=== PATIENT | female | born 1945 | race Caucasian/White ===

== ENCOUNTER → 2017-09-11 | Outpatient (CLI) | payer MEDICARE ==
[~2017-09-11] MED LIST: ASPI-1471 PO; CIPR-214 PO; LEVO50TA80 PO; NITR-105 PO; OMEP-218 PO; PRED-1 PO; ZOL5 PO
== END ==
LOC: LAB 14:17
PROVIDERS: ATTEND Internal Medicine Nephrology
DX: I10 Essential (primary) hypertension (principal); Q60.0 Renal agenesis, unilateral; D47.2 Monoclonal gammopathy
CPT/HCPCS: 81001

== ENCOUNTER 2017-11-30 06:53 | Emergency (ER) | payer MEDICARE ==
--- NOTE | 2017-11-30 07:06 | ER Report ---
History and Physical Time Seen By MD: 07:06 Hx. of Stated Complaint: uti, took peridium an hour ago HPI/ROS CHIEF COMPLAINT: dysuria HISTORY OF PRESENT ILLNESS: Patient is a 72-year-old female who presents to the emergency department with a 1 day worth of increased urinary frequency and burning with urination. She denies any flank pain patient has been dealing with frequent urinary tract infections. She just recently returned from [place] and was diagnosed and treated for 2 separate urinary tract infections over the past 2 months. 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 Patient does have follow-up with [facility] in approximately one week. She did take Pyridium just prior to coming to the emergency department for her symptoms. REVIEW OF SYSTEMS: Respiratory: No cough, no dyspnea. Cardiovascular: No chest pain, no palpitations. Gastrointestinal: Per pubic abdominal pain no nausea vomiting or diarrhea Musculoskeletal: No back pain. Allergies: Coded Allergies: sulfamethoxazole (Verified Allergy, Intermediate, RASH, 11/30/17) trimethoprim (Verified Allergy, Intermediate, RASH, 11/30/17) cefazolin (Verified Adverse Reaction, Intermediate, RASH, 11/30/17) Home Meds Active Scripts Cephalexin (KEFLEX) 500 Mg Capsule, 500 MG PO Q6H, #28 CAP 0 Refills TAKE ONE CAPSULE BY MOUTH EVERY SIX HOURS Prov:LAURENT MARION MD 11/30/17 Reported Medications Levothyroxine Sodium (SYNTHROID) 50 Mcg Tablet, 50 MCG PO QDAY, TAB 08/30/17 Discontinued Scripts Ciprofloxacin Hcl (CIPROFLOXACIN HCL) 500 Mg Tablet, 500 MG PO Q12H, #14 TAB Prov:ABHISHEK RIOJAS PA-C 08/30/17 Past Medical/Surgical History Hypothyroidism Hx Smoking: No Hx Substance Use Disorder: No Constitutional Vital Sign - Last 24 Hours 11/30/17 06:57 Temp 98.3 Pulse 74 Resp 12 B/P (MAP) 120/77 Pulse Ox 96 O2 Delivery Room Air Physical Exam General Appearance: The patient is alert, has no immediate need for airway protection and no current signs of toxicity. Eyes: Pupils equal and round no injection. Respiratory: Chest is non tender, lungs are clear to auscultation. Cardiac: regular rate and rhythm Gastrointestinal: Abdomen is soft and non tender, no masses, bowel sounds normal. No CVA tenderness Musculoskeletal: Neck: Neck is supple and non tender. Extremities have full range of motion and are non tender. Skin: No rashes or lesions. Medical Decision Making Data Points Laboratory Hematology Test 11/30/17 06:58 Chemistry Test 11/30/17 06:58 Urinalysis Test 11/30/17 06:58 ED Course/Re-evaluation ED Course 11/30/2017 7:26:14 am plan at this time will be to treat the patient and her clear for urinary tract infection with cephalexin. Course will be proximally 7 days. We will send urinalysis for culture and sensitivity. I explained to the patient that if the organism is resistant to her current antibiotic we will give her a call and switch her to a more effective antibiotic. Decision to Disposition Date: Nov 30, 2017 Decision to Disposition Time: 07:26 Depart Departure Latest Vital Signs Vital Signs Date Time Temp Pulse Resp B/P (MAP) Pulse Ox O2 Delivery O2 Flow Rate FiO2 11/30/17 06:57 98.3 74 12 120/77 96 Room Air Impression: Primary Impression: Urinary tract infection Condition: Improved Disposition: HOME OR SELF-CARE Referrals: JUDY VARNER MD (PCP) 1 Week if symptoms persist SHAQUILLE GROVE MD 1 Week if symptoms persist New Scripts Cephalexin (KEFLEX) 500 Mg Capsule 500 MG PO Q6H, #28 CAP 0 Refills TAKE ONE CAPSULE BY MOUTH EVERY SIX HOURS Prov: LAURENT MARION MD 11/30/17 Patient Instructions: Urinary Tract Infection in Women (ED) Additional Instructions: Scheduled follow-up with a urologist, you were given contact information for Dr. Grove, if your symptoms persist greater than one week. Problem Qualifiers Primary Impression: Urinary tract infection Urinary tract infection type: acute cystitis Hematuria presence: without hematuria Qualified Codes: N30.00 - Acute cystitis without hematuria LAURENT MARION MD Nov 30, 2017 07:06
[2017-11-30] MEDS ORDERED: CEPHALEXIN MONO 500 MG CAP PO ONE (07:20)
[2017-11-30] MEDS ORDERED: CEPH-13 PO (07:23)
[2017-11-30 07:31] VITALS: BP 106/73
== END 2017-11-30 07:30 | disposition home or self-care (01) ==
LOC: ER 07:06
DX: N30.00 Acute cystitis without hematuria (principal)
CPT/HCPCS: 81001; 87077; 87088; 87186; 99282; A9270

== ENCOUNTER 2017-12-10 07:42 | Emergency (ER) | payer MEDICARE ==
[~2017-12-10 07:42] MED LIST changes: +CEPH-13 PO
--- NOTE | 2017-12-10 07:44 | ER Report ---
History and Physical Time Seen By MD: 07:43 HPI/ROS CHIEF COMPLAINT: Dysuria HISTORY OF PRESENT ILLNESS: 72-year-old female presents with dysuria since June has had recurrent UTIs and last treated November 30 with Keflex for UTI seen here. She is unsure of the cause of her recurrent UTIs. She has not sexy active currently. She does usual hygiene. She's had 1 vaginal . She's had a hysterectomy. She is planning on seeing a urologist in [place] at the end of January. She feels like her urethra is always irritated and feels like there may be an infection in the urethra. She had chlamydia and gonorrhea tested recently and does not want them retested today as they were negative and she is not currently active. She endorses dysuria as well as hesitancy feeling like difficult to void when she has to go. She reports she has 1 kidney on the left side. 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 REVIEW OF SYSTEMS: Respiratory: No cough, no dyspnea. Cardiovascular: No chest pain, no palpitations. Gastrointestinal: No vomiting, no abdominal pain. Musculoskeletal: No back pain. Allergies: Coded Allergies: sulfamethoxazole (Verified Allergy, Intermediate, RASH, 12/10/17) trimethoprim (Verified Allergy, Intermediate, RASH, 12/10/17) Home Meds Reported Medications Levothyroxine Sodium (SYNTHROID) 50 Mcg Tablet, 50 MCG PO QDAY, TAB 08/30/17 Discontinued Scripts Cephalexin (KEFLEX) 500 Mg Capsule, 500 MG PO Q6H, #28 CAP 0 Refills TAKE ONE CAPSULE BY MOUTH EVERY SIX HOURS Prov:LAURENT MARION MD 11/30/17 Hx Smoking: No Hx Substance Use Disorder: No Constitutional Vital Sign - Last 24 Hours 12/10/17 12/10/17 12/10/17 12/10/17 07:52 07:54 07:57 08:00 Temp 98.2 Pulse 89 83 Resp 16 B/P (MAP) 129/99 (109) 129/99 117/84 (95) Pulse Ox 94 95 O2 Delivery Room Air 12/10/17 12/10/17 12/10/17 12/10/17 08:12 08:27 08:30 08:42 Pulse 82 76 B/P (MAP) 113/88 (96) Pulse Ox 93 92 88 Physical Exam General Appearance: The patient is alert, has no immediate need for airway protection and no signs of toxicity. No acute distress Eyes: Pupils equal and round no pallor or injection. ENT, Mouth: Mucous membranes are moist. Respiratory: There are no retractions, lungs are clear to auscultation. Cardiovascular: Regular rate and rhythm. [ ] Gastrointestinal: Abdomen is soft and non tender, no masses, bowel sounds normal. Back: No CVA tenderness. : A health education teacher was present for the exam: tax technician Rachele Davila. Swabs for ANUJ and wet prep were obtained about the urethra. A speculum exam was performed and normal for age. External exam shows small amount of skin breakdown at the inferior aspect of the introitus without any bleeding. Neurological: Normal Skin: Warm and dry, no rashes. Musculoskeletal: Neck is supple non tender. Extremities are nontender, nonswollen and have full range of motion. No edema DIFFERENTIAL DIAGNOSIS: After history and physical exam differential diagnosis was considered for a bacterial vaginosis urethral, recurrent urinary tract infection. No signs of systemic or kidney infection. Medical Decision Making Data Points Laboratory Hematology Test 12/10/17 07:50 Urine Color Yellow Urine Clarity Turbid Urine pH 6.0 pH (4.8-9.5) Urine Specific [place] 1.016 Urine Protein 100 mg/dL (NEGATIVE) Urine Glucose (UA) Negative mg/dL (NEGATIVE) Urine Ketones Negative mg/dL (NEGATIVE) Urine Blood Large (NEGATIVE) Urine Nitrite Negative (NEGATIVE) Urine Bilirubin Negative (NEGATIVE) Urine Urobilinogen Negative mg/dL (0.2-1.9) Urine Leukocyte Esterase Moderate (NEGATIVE) Urine RBC 4665 /HPF (0-2/HPF) Urine WBC 9692 /HPF (0-5/HPF) Urine WBC Clumps Many /HPF Urine Squamous Epithelial Cells Many /LPF (</=FEW) Urine Transitional Epithelial Cells Many /LPF (NONE-FEW) Urine Bacteria Moderate /HPF (NONE-FEW) Urine Mucus Few /HPF (NONE-FEW) Chemistry Test 12/10/17 07:50 Urine Color Yellow Urine Clarity Turbid Urine pH 6.0 pH (4.8-9.5) Urine Specific [place] 1.016 Urine Protein 100 mg/dL (NEGATIVE) Urine Glucose (UA) Negative mg/dL (NEGATIVE) Urine Ketones Negative mg/dL (NEGATIVE) Urine Blood Large (NEGATIVE) Urine Nitrite Negative (NEGATIVE) Urine Bilirubin Negative (NEGATIVE) Urine Urobilinogen Negative mg/dL (0.2-1.9) Urine Leukocyte Esterase Moderate (NEGATIVE) Urine RBC 4665 /HPF (0-2/HPF) Urine WBC 9692 /HPF (0-5/HPF) Urine WBC Clumps Many /HPF Urine Squamous Epithelial Cells Many /LPF (</=FEW) Urine Transitional Epithelial Cells Many /LPF (NONE-FEW) Urine Bacteria Moderate /HPF (NONE-FEW) Urine Mucus Few /HPF (NONE-FEW) Urinalysis Test 12/10/17 07:50 Urine Color Yellow Urine Clarity Turbid Urine pH 6.0 pH (4.8-9.5) Urine Specific [place] 1.016 Urine Protein 100 mg/dL (NEGATIVE) Urine Glucose (UA) Negative mg/dL (NEGATIVE) Urine Ketones Negative mg/dL (NEGATIVE) Urine Blood Large (NEGATIVE) Urine Nitrite Negative (NEGATIVE) Urine Bilirubin Negative (NEGATIVE) Urine Urobilinogen Negative mg/dL (0.2-1.9) Urine Leukocyte Esterase Moderate (NEGATIVE) Urine RBC 4665 /HPF (0-2/HPF) Urine WBC 9692 /HPF (0-5/HPF) Urine WBC Clumps Many /HPF Urine Squamous Epithelial Cells Many /LPF (</=FEW) Urine Transitional Epithelial Cells Many /LPF (NONE-FEW) Urine Bacteria Moderate /HPF (NONE-FEW) Urine Mucus Few /HPF (NONE-FEW) Microbiology Microbiology Date/Time Source Procedure Growth Status 12/10/17 08:56 Pelvic ANUJ Preparation - Final Complete 12/10/17 08:56 Vaginal Wet Prep - Final Complete ED Course/Re-evaluation ED Course Plan of care discussed. Agreed upon. Orders placed. Results were returned and results were discussed with the patient. She is still symptomatic for a UTI will treat with Cipro. No signs of severe systemic infection. Possibility of urinary colonization discussed. She plans to follow-up with her urologist. Decision to Disposition Date: Dec 10, 2017 Decision to Disposition Time: 09:52 Depart Departure Latest Vital Signs Vital Signs Date Time Temp Pulse Resp B/P (MAP) Pulse Ox O2 Delivery O2 Flow Rate FiO2 12/10/17 08:42 76 88 12/10/17 08:30 113/88 (96) 12/10/17 07:54 98.2 16 Room Air Impression: Primary Impression: Symptomatic urinary tract infection Condition: Improved Disposition: HOME OR SELF-CARE Referrals: JUDY VARNER MD (PCP) New Scripts Ciprofloxacin Hcl (CIPROFLOXACIN HCL) 500 Mg Tablet 500 MG PO Q12H for 3 Days, #6 TAB Prov: KWADWO CHENG MD 12/10/17 Patient Instructions: Urinary Tract Infection in Women (ED) KWADWO CHENG MD Dec 10, 2017 07:44
[2017-12-10] MEDS ORDERED: CIPR-214 PO (09:53)
[2017-12-10 10:00] VITALS: BP 96/73
== END 2017-12-10 10:10 | disposition home or self-care (01) ==
LOC: ER 07:53
DX: N39.0 Urinary tract infection, site not specified (principal)
CPT/HCPCS: 81001; 87088; 87210; 99283; Q0112; 87077; 87186

== ENCOUNTER → 2018-01-27 | Outpatient (CLI) | payer MEDICARE ==
[~2018-01-27] MED LIST changes: +ASPI81TA94 PO; +DOCU50LI29 PO; +LEVO75TA68 PO; +OXYC-373 PO
[2018-01-27 14:16] LABS: PLATELET COUNT, AUTOMATED 382 K/uL (150-450)
== END ==
LOC: SPU 11:00
PROVIDERS: ATTEND Internal Medicine
DX: T81.4XXA Infection following a procedure, initial encounter (principal)
CPT/HCPCS: 36592; 82040; 82247; 82310; 82374; 82435; 82550; 82565; 82947; 84075; 84132; 84155; 84295; 84450; 84460; 84520; 85025; 86140; 87324; 87449

== ENCOUNTER 2018-02-21 10:00 | Outpatient (RCR) | payer MEDICARE ==
[2018-01-18 13:01] VITALS: BP 165/89
[2018-01-18] MEDS: NS(*) 0.9% 100 ML BAG 100 ML IVPB PRN (13:07)
[2018-01-18] MEDS: cefTRIAXone(*) 2 GM VIAL 2 GM in NS(*) 0.9% 100 ML ADDVANT BAG 100 ML IVPB PRN (13:10)
[2018-01-18] MEDS: NS 0.9% IVPB PRN (13:56)
[2018-01-18] MEDS: DAPTOMYCIN IVPB PRN (13:56)
[2018-01-18 14:35] VITALS: BP 152/87
[2018-01-19] MEDS: NS(*) 0.9% 100 ML BAG 100 ML IVPB PRN (11:48)
[2018-01-19] MEDS: cefTRIAXone(*) 2 GM VIAL 2 GM in NS(*) 0.9% 100 ML ADDVANT BAG 100 ML IVPB PRN (12:04)
[2018-01-19 12:41] VITALS: BP 140/78
[2018-01-19] MEDS: NS 0.9% IVPB PRN (13:15)
[2018-01-19] MEDS: DAPTOMYCIN IVPB PRN (13:15)
[2018-01-19] MEDS: NS(*) 0.9% 500 ML BAG 500 ML IV PRN (13:23)
[2018-01-20] MEDS: NS(*) 0.9% 100 ML BAG 100 ML IVPB PRN (14:14)
[2018-01-20] MEDS: cefTRIAXone(*) 2 GM VIAL 2 GM in NS(*) 0.9% 100 ML ADDVANT BAG 100 ML IVPB PRN (14:14)
[2018-01-20] MEDS: NS(*) 0.9% 500 ML BAG 500 ML IV PRN (14:52)
[2018-01-20] MEDS: DAPTOMYCIN IVPB PRN (14:52)
[2018-01-20] MEDS: NS 0.9% IVPB PRN (14:52)
[2018-01-20 15:13] VITALS: BP 130/84
[2018-01-21 13:57] VITALS: BP 162/86
[2018-01-21] MEDS: cefTRIAXone(*) 2 GM VIAL 2 GM in NS(*) 0.9% 100 ML ADDVANT BAG 100 ML IVPB PRN (13:57)
[2018-01-21] MEDS: DAPTOMYCIN IVPB PRN (14:30)
[2018-01-21] MEDS: NS 0.9% IVPB PRN (14:30)
[2018-01-21] MEDS: NS(*) 0.9% 100 ML BAG 100 ML IVPB PRN (15:46)
[2018-01-24 14:01] VITALS: BP 159/80
[2018-01-24] MEDS: cefTRIAXone(*) 2 GM VIAL 2 GM in NS(*) 0.9% 100 ML ADDVANT BAG 100 ML IVPB PRN (14:14)
[2018-01-24] MEDS: NS(*) 0.9% 100 ML BAG 100 ML IVPB PRN (14:14)
[2018-01-24] MEDS: NS 0.9% IVPB PRN (14:47)
[2018-01-24] MEDS: DAPTOMYCIN IVPB PRN (14:47)
[2018-01-25 13:10] VITALS: BP 152/76
[2018-01-25] MEDS: cefTRIAXone(*) 2 GM VIAL 2 GM in NS(*) 0.9% 100 ML ADDVANT BAG 100 ML IVPB PRN (13:30)
[2018-01-25] MEDS: DAPTOMYCIN IVPB PRN (14:08)
[2018-01-25] MEDS: NS 0.9% IVPB PRN (14:08)
[2018-01-25] MEDS: NS(*) 0.9% 100 ML BAG 100 ML IVPB PRN (14:52)
[2018-01-25 15:01] VITALS: BP 159/87
[2018-01-26 12:35] VITALS: BP 163/97
[2018-01-26] MEDS: cefTRIAXone(*) 2 GM VIAL 2 GM in NS(*) 0.9% 100 ML ADDVANT BAG 100 ML IVPB PRN (12:35)
[2018-01-26] MEDS: NS(*) 0.9% 100 ML BAG 100 ML IVPB PRN (12:38)
[2018-01-26] MEDS: DAPTOMYCIN IVPB PRN (13:17)
[2018-01-26] MEDS: NS 0.9% IVPB PRN (13:17)
[2018-01-26 14:02] VITALS: BP 142/77
[2018-01-27 13:52] VITALS: BP 180/91
[2018-01-27] MEDS: NS(*) 0.9% 100 ML BAG 100 ML IVPB PRN (14:06)
[2018-01-27] MEDS: cefTRIAXone(*) 2 GM VIAL 2 GM in NS(*) 0.9% 100 ML ADDVANT BAG 100 ML IVPB PRN (14:07)
[2018-01-28] MEDS: cefTRIAXone(*) 2 GM VIAL 2 GM in NS(*) 0.9% 100 ML ADDVANT BAG 100 ML IVPB PRN (13:45)
[2018-01-28] MEDS: NS(*) 0.9% 100 ML BAG 100 ML IVPB PRN (13:46)
[2018-01-28 14:00] VITALS: BP 137/74
[2018-01-28 14:33] VITALS: BP 120/71
[2018-01-29 13:59] VITALS: BP 126/73
[2018-01-29] MEDS: cefTRIAXone(*) 2 GM VIAL 2 GM in NS(*) 0.9% 100 ML ADDVANT BAG 100 ML IVPB PRN (14:14)
[2018-01-30] MEDS: cefTRIAXone(*) 2 GM VIAL 2 GM in NS(*) 0.9% 100 ML ADDVANT BAG 100 ML IVPB PRN (12:37)
[2018-01-30] MEDS: NS(*) 0.9% 100 ML BAG 100 ML IVPB PRN (12:38)
[2018-01-30 13:04] VITALS: BP 127/82
[2018-01-31 10:10] VITALS: BP_SYST 103; BP_SYST 133; BP_DIAS 72
[2018-01-31 10:18] LABS: PLATELET COUNT, AUTOMATED 413 K/uL (150-450)
[2018-01-31] MEDS: cefTRIAXone(*) 2 GM VIAL 2 GM in NS(*) 0.9% 100 ML ADDVANT BAG 100 ML IVPB PRN (10:21)
[2018-01-31] MEDS: NS(*) 0.9% 100 ML BAG 100 ML IVPB PRN (10:23)
[2018-01-31 11:01] VITALS: BP 113/65
[2018-02-01] MEDS: NS(*) 0.9% 100 ML BAG 100 ML IVPB PRN (11:56)
[2018-02-01] MEDS: cefTRIAXone(*) 2 GM VIAL 2 GM in NS(*) 0.9% 100 ML ADDVANT BAG 100 ML IVPB PRN (11:56)
[2018-02-01 12:01] VITALS: BP 110/67
[2018-02-02] MEDS: cefTRIAXone(*) 2 GM VIAL 2 GM in NS(*) 0.9% 100 ML ADDVANT BAG 100 ML IVPB PRN (12:06)
[2018-02-02] MEDS: NS(*) 0.9% 100 ML BAG 100 ML IVPB PRN (12:06)
[2018-02-02 12:32] VITALS: BP 117/74
[2018-02-03] MEDS: NS(*) 0.9% 100 ML BAG 100 ML IVPB PRN (10:45)
[2018-02-03] MEDS: cefTRIAXone(*) 2 GM VIAL 2 GM in NS(*) 0.9% 100 ML ADDVANT BAG 100 ML IVPB PRN (11:00)
[2018-02-03 12:07] VITALS: BP 117/80
[2018-02-04] MEDS: cefTRIAXone(*) 2 GM VIAL 2 GM in NS(*) 0.9% 100 ML ADDVANT BAG 100 ML IVPB PRN (09:58)
[2018-02-04 10:01] VITALS: BP 117/72
[2018-02-05] MEDS: cefTRIAXone(*) 2 GM VIAL 2 GM in NS(*) 0.9% 100 ML ADDVANT BAG 100 ML IVPB PRN (08:56)
[2018-02-05 08:57] VITALS: BP 129/74
[2018-02-06] MEDS: cefTRIAXone(*) 2 GM VIAL 2 GM in NS(*) 0.9% 100 ML ADDVANT BAG 100 ML IVPB PRN (09:38)
[2018-02-06] MEDS: NS(*) 0.9% 100 ML BAG 100 ML IVPB PRN (09:39)
[2018-02-06 11:48] VITALS: BP 125/85
[2018-02-07] MEDS: cefTRIAXone(*) 2 GM VIAL 2 GM in NS(*) 0.9% 100 ML ADDVANT BAG 100 ML IVPB PRN (09:54)
[2018-02-07 09:56] VITALS: BP 147/88
[~2018-02-21 10:00] MED LIST changes: +ALTEPLASE RECOMB 2 MG VIAL IVP PRN; +DEXTROSE 5%(*) 100 ML BAG 100 ML IVPB PRN; +WATER FOR INJ,STERILE 20 ML IVP PRN
[2018-02-21 11:00] VITALS: BP 120/75
[2018-02-21 11:24] LABS: PLATELET COUNT, AUTOMATED 326 K/uL (150-450)
== END 2018-02-26 15:46 | disposition home or self-care (01) ==
LOC: SPU 10:00
PROVIDERS: ATTEND Internal Medicine
DX: T81.4XXA Infection following a procedure, initial encounter (principal); I10 Essential (primary) hypertension; Q60.0 Renal agenesis, unilateral; D47.2 Monoclonal gammopathy; D50.9 Iron deficiency anemia, unspecified
CPT/HCPCS: 36415; 81001; 82570; 82607; 82728; 82746; 83540; 83550; 84156; 85025; 86140; 87088; 96365; 96366; 96367; J0696; J0878; J1642; J7040; J7050; 36592; 82040; 82247; 82310; 82374; 82435; 82550; 82565; 82947; 84075; 84132; 84155; 84295; 84450; 84460; 84520; 87324; 87449

== ENCOUNTER 2018-03-08 09:46 | Emergency (ER) | payer MEDICARE ==
[~2018-03-08 09:46] MED LIST changes: -ALTEPLASE RECOMB 2 MG VIAL IVP PRN; -DEXTROSE 5%(*) 100 ML BAG 100 ML IVPB PRN; -WATER FOR INJ,STERILE 20 ML IVP PRN
[2018-03-08] MEDS ORDERED: CEPHALEXIN MONO 500 MG CAP PO ONE (10:05)
[2018-03-08] MEDS ORDERED: CEPH-13 PO (10:06)
--- NOTE | 2018-03-08 10:07 | ER Report ---
History and Physical Time Seen By MD: 10:03 Hx. of Stated Complaint: PT REPORTS FREQUENT BLADDER INFECTIONS, STATES SHE STARTED HAVING SYMPTOMS TODAY HPI/ROS CHIEF COMPLAINT: Urinary frequency HISTORY OF PRESENT ILLNESS: Patient is a 72-year-old female who reports having frequent urinary tract infections she states that the last infection occurred approximately one month ago. She was prescribed Macrodantin at that time and her symptoms improved. This morning she woke with increased urinary frequency burning and pain similar to all of her prior episodes of UTI. She apparently has seen Dr. Grove in the past who prescribed a Macrodantin. She was told the next time she suspects she has a urine infection to come to the emergency department for a catheter urinalysis and urine culture. Patient did take one dose of Macrodantin and Pyridium prior to coming to the emergency department this morning. She denies any other symptoms she denies fevers or chills she denies any vaginal discharge. REVIEW OF SYSTEMS: Respiratory: No cough, no dyspnea. Cardiovascular: No chest pain, no palpitations. Gastrointestinal: No vomiting, no abdominal pain. : Increased frequency of urination, dysuria Musculoskeletal: No back pain. Allergies: Coded Allergies: sulfamethoxazole (Verified Allergy, Intermediate, RASH, 03/08/18) trimethoprim (Verified Allergy, Intermediate, RASH, 03/08/18) Home Meds Active Scripts Cephalexin (KEFLEX) 500 Mg Capsule, 500 MG PO Q6H, #28 CAP 0 Refills TAKE ONE CAPSULE BY MOUTH EVERY SIX HOURS Prov:LAURENT MARION MD 03/08/18 Reported Medications Levothyroxine Sodium (SYNTHROID) 75 Mcg Tablet, 75 MCG PO QDAY 01/18/18 Discontinued Reported Medications Aspirin (ASPIRIN) 81 Mg Tab.chew, 81 MG PO QDAY, TAB.CHEW 01/18/18 Oxycodone Hcl/Acetaminophen (OXYCODONE-ACETAMINOPHEN 5-325) 1 Each Tablet, 1 EACH PO 1-3XD, TAB 01/18/18 Docusate Sodium (STOOL SOFTENER) 50 Mg/5 Ml Liquid, 50 MG PO 01/18/18 Past Medical/Surgical History Recurrent urinary tract infections Hx Smoking: No Hx Substance Use Disorder: No Constitutional Vital Sign - Last 24 Hours 03/08/18 09:53 Temp 97.9 Pulse 76 Resp 16 B/P (MAP) 140/77 Pulse Ox 93 O2 Delivery Room Air Intake and Output 03/08/18 03/08/18 03/09/18 15:00 23:00 07:00 Output Total 70 ml Balance -70 ml Physical Exam General Appearance: The patient is alert, has no immediate need for airway protection and no current signs of toxicity. Gastrointestinal: Abdomen is soft and non tender, no masses, bowel sounds normal. Skin: No rashes or lesions. Medical Decision Making Data Points Laboratory Hematology Test 03/08/18 10:[address] [place] Urine Clarity Clear Urine pH Color interference Urine Specific [place] Color interference Urine Protein Color interference Urine Glucose (UA) Color interference Urine Ketones Color interference Urine Blood Color interference Urine Nitrite Color interference Urine Bilirubin Color interference Urine Urobilinogen Color interference Urine Leukocyte Esterase Color interference Urine RBC <1 /HPF (0-2/HPF) Urine WBC 62 /HPF (0-5/HPF) Urine Squamous Epithelial Cells None /LPF (NONE-FEW) Urine Transitional Epithelial Cells Few /LPF (NONE-FEW) Urine Bacteria Few /HPF (NONE-FEW) Urine Mucus None /HPF (NONE-FEW) Chemistry Test 03/08/18 10:[address] [place] [place] Urine Clarity Clear Urine pH Color interference Urine Specific [place] Color interference Urine Protein Color interference Urine Glucose (UA) Color interference Urine Ketones Color interference Urine Blood Color interference Urine Nitrite Color interference Urine Bilirubin Color interference Urine Urobilinogen Color interference Urine Leukocyte Esterase Color interference Urine RBC <1 /HPF (0-2/HPF) Urine WBC 62 /HPF (0-5/HPF) Urine Squamous Epithelial Cells None /LPF (NONE-FEW) Urine Transitional Epithelial Cells Few /LPF (NONE-FEW) Urine Bacteria Few /HPF (NONE-FEW) Urine Mucus None /HPF (NONE-FEW) Urinalysis Test 03/08/18 10:[address] [place] [place] Urine Clarity Clear Urine pH Color interference Urine Specific [place] Color interference Urine Protein Color interference Urine Glucose (UA) Color interference Urine Ketones Color interference Urine Blood Color interference Urine Nitrite Color interference Urine Bilirubin Color interference Urine Urobilinogen Color interference Urine Leukocyte Esterase Color interference Urine RBC <1 /HPF (0-2/HPF) Urine WBC 62 /HPF (0-5/HPF) Urine Squamous Epithelial Cells None /LPF (NONE-FEW) Urine Transitional Epithelial Cells Few /LPF (NONE-FEW) Urine Bacteria Few /HPF (NONE-FEW) Urine Mucus None /HPF (NONE-FEW) ED Course/Re-evaluation ED Course 03/08/2018 10:05:08 am plan at this time will be to obtain catheter specimen to send for urinalysis and culture. I will start the patient on a 7 day course of cephalexin Decision to Disposition Date: Mar 08, 2018 Decision to Disposition Time: 10:32 Depart Departure Latest Vital Signs Vital Signs Date Time Temp Pulse Resp B/P (MAP) Pulse Ox O2 Delivery O2 Flow Rate FiO2 03/08/18 09:53 97.9 76 16 140/77 93 Room Air Impression: Primary Impression: Symptomatic urinary tract infection Condition: Improved Disposition: HOME OR SELF-CARE Referrals: JUDY VARNER MD (PCP) SHAQUILLE GROVE MD 2 Days If your symptoms do not improve New Scripts Cephalexin (KEFLEX) 500 Mg Capsule 500 MG PO Q6H, #28 CAP 0 Refills TAKE ONE CAPSULE BY MOUTH EVERY SIX HOURS Prov: LAURENT MARION MD 03/08/18 Patient Instructions: Urinary Tract Infection in Women (DC) Additional Instructions: Take your antibiotics as directed until completed. Use your Pyridium at home to treat symptoms of pain. Schedule an appointment with Dr. Grove in the next 2 days if your symptoms persist. If your symptoms worsen at any time you should report to return to the emergency department for reevaluation LAURENT MARION MD Mar 08, 2018 10:07
[2018-03-08 10:15] VITALS: BP 114/82
== END 2018-03-08 10:17 | disposition home or self-care (01) ==
LOC: ER 09:49
DX: N39.0 Urinary tract infection, site not specified (principal)
CPT/HCPCS: 81001; 87088; 99283; A4353; A9270

== ENCOUNTER 2018-03-10 07:58 | Emergency (ER) | payer MEDICARE ==
--- NOTE | 2018-03-10 08:04 | ER Report ---
History and Physical Time Seen By MD: 08:03 HPI/ROS CHIEF COMPLAINT: Urinary tract infection symptoms HISTORY OF PRESENT ILLNESS: Patient is a 72-year-old female who returns to the emergency department for persistent urinary tract infection symptoms now is also having frequent watery diarrhea that began last evening. She states the diarrhea is yellow in color and not particularly foul smelling. She denies any mixing of blood in the stool. Patient apparently started to take his ciprofloxacin which she had some old tablets of approximately 24 hours ago when her symptoms were not improving. Continuing to take Pyridium. She denies any fevers or chills. She denies any chest pain or shortness of breath. She denies abdominal pain. REVIEW OF SYSTEMS: Constitutional: No fever, no chills. Cardiovascular: No chest pain, no palpitations. Respiratory: No cough, no shortness of breath. Gastrointestinal: No abdominal pain, no vomiting. Yellow watery diarrhea Genitourinary: Persistent dysuria Allergies: Coded Allergies: sulfamethoxazole (Verified Allergy, Intermediate, RASH, 03/08/18) trimethoprim (Verified Allergy, Intermediate, RASH, 03/08/18) Home Meds Active Scripts Nitrofurantoin Macrocrystal (MACRODANTIN) 100 Mg Capsule, 100 MG PO QID for 7 Days, #28 CAPSULE 0 Refills Prov:LAURENT MARION MD 03/10/18 Cephalexin (KEFLEX) 500 Mg Capsule, 500 MG PO Q6H, #28 CAP 0 Refills TAKE ONE CAPSULE BY MOUTH EVERY SIX HOURS Prov:LAURENT MARION MD 03/08/18 Reported Medications Levothyroxine Sodium (SYNTHROID) 75 Mcg Tablet, 75 MCG PO QDAY 01/18/18 Discontinued Reported Medications Aspirin (ASPIRIN) 81 Mg Tab.chew, 81 MG PO QDAY, TAB.CHEW 01/18/18 Oxycodone Hcl/Acetaminophen (OXYCODONE-ACETAMINOPHEN 5-325) 1 Each Tablet, 1 EACH PO 1-3XD, TAB 01/18/18 Docusate Sodium (STOOL SOFTENER) 50 Mg/5 Ml Liquid, 50 MG PO 01/18/18 Past Medical/Surgical History Past medical history for 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 History of recurrent cystitis, history of left shoulder replacement. Hx Smoking: No Hx Substance Use Disorder: No Constitutional Vital Sign - Last 24 Hours 03/10/18 03/10/18 03/10/18 03/10/18 08:04 08:15 09:38 10:19 Temp 98.0 Pulse 79 76 Resp 95 16 16 B/P (MAP) 141/77 118/80 (93) 132/87 (102) 126/85 (99) Pulse Ox 93 94 92 O2 Delivery Room Air Room Air Intake and Output 03/10/18 03/10/18 03/11/18 15:00 23:00 07:00 Intake Total 1000 ml Output Total 100 ml Balance 900 ml Physical Exam General Appearance: The patient is alert, has no immediate need for airway protection and no current signs of toxicity. Eyes: Pupils equal and round no injection. Respiratory: Chest is non tender, lungs are clear to auscultation. Cardiac: regular rate and rhythm Gastrointestinal: Abdomen is soft and non tender, no masses, bowel sounds normal. Extremities : Healed surgical scar to left shoulder from prior repair. Skin: No rashes or lesions. [ ] Medical Decision Making Data Points Result Diagram: 03/10/1827 03/10/1827 Laboratory Hematology Test 03/10/18 09:27 03/10/18 09:45 Red Blood Count 4.05 M/uL (4.17-5.56) Mean Corpuscular Volume 95.0 fL (80.0-96.0) Mean Corpuscular Hemoglobin 31.8 pg (26.0-33.0) Mean Corpuscular Hemoglobin Concent 33.4 g/dL (32.0-36.0) Red Cell Distribution Width 13.3 % (11.5-14.5) Mean Platelet Volume 6.9 fL (7.2-11.1) Neutrophils (%) (Auto) 79.3 % (39.4-72.5) Lymphocytes (%) (Auto) 14.0 % (17.6-49.6) Monocytes (%) (Auto) 4.8 % (4.1-12.4) Eosinophils (%) (Auto) 1.6 % (0.4-6.7) Basophils (%) (Auto) 0.3 % (0.3-1.4) Nucleated RBC Relative Count (auto) 0.1 /100WBC Neutrophils # (Auto) 3.0 K/uL (2.0-7.4) Lymphocytes # (Auto) 0.5 K/uL (1.3-3.6) Monocytes # (Auto) 0.2 K/uL (0.3-1.0) Eosinophils # (Auto) 0.1 K/uL (0.0-0.5) Basophils # (Auto) 0.0 K/uL (0.0-0.1) Nucleated RBC Absolute Count (auto) 0.00 K/uL Sodium Level 138 mmol/L (137-145) Potassium Level 3.7 mmol/L (3.5-5.0) Chloride Level 101 mmol/L (98-107) Carbon Dioxide Level 26 mmol/L (22-31) Blood Urea Nitrogen 9 mg/dl (7-18) Creatinine 0.80 mg/dl (0.52-1.04) Glomerular Filtration Rate Calc > 60.0 Random Glucose 104 mg/dl (75-110) Calcium Level 9.5 mg/dl (8.4-10.2) Total Bilirubin 0.5 mg/dl (0.2-1.3) Aspartate Amino Transf (AST/SGOT) 21 U/L (0-35) Alanine Aminotransferase (ALT/SGPT) 28 U/L (0-56) Alkaline Phosphatase 63 U/L (0-126) Total Protein 7.2 g/dl (6.3-8.2) Albumin 4.0 g/dl (3.5-5.0) Lipase 38 U/L (23-300) Urine Color Reena Urine Clarity Clear Urine pH 5.0 pH (4.8-9.5) Urine Specific [place] 1.009 Urine Protein Negative mg/dL (NEGATIVE) Urine Glucose (UA) Negative mg/dL (NEGATIVE) Urine Ketones Negative mg/dL (NEGATIVE) Urine Blood Negative (NEGATIVE) Urine Nitrite Positive (NEGATIVE) Urine Bilirubin Negative (NEGATIVE) Urine Urobilinogen 4.0 mg/dL (0.2-1.9) Urine Leukocyte Esterase Negative (NEGATIVE) Urine RBC <1 /HPF (0-2/HPF) Urine WBC 2 /HPF (0-5/HPF) Urine Squamous Epithelial Cells Few /LPF (NONE-FEW) Urine Bacteria Negative /HPF (NONE-FEW) Urine Mucus Few /HPF (NONE-FEW) Chemistry Test 03/10/18 09:27 03/10/18 09:45 White Blood Count 3.8 k/uL (4.5-11.0) Red Blood Count 4.05 M/uL (4.17-5.56) Hemoglobin 12.9 g/dL (12.0-16.0) Hematocrit 38.5 % (34.0-47.0) Mean Corpuscular Volume 95.0 fL (80.0-96.0) Mean Corpuscular Hemoglobin 31.8 pg (26.0-33.0) Mean Corpuscular Hemoglobin Concent 33.4 g/dL (32.0-36.0) Red Cell Distribution Width 13.3 % (11.5-14.5) Platelet Count 328 K/uL (150-450) Mean Platelet Volume 6.9 fL (7.2-11.1) Neutrophils (%) (Auto) 79.3 % (39.4-72.5) Lymphocytes (%) (Auto) 14.0 % (17.6-49.6) Monocytes (%) (Auto) 4.8 % (4.1-12.4) Eosinophils (%) (Auto) 1.6 % (0.4-6.7) Basophils (%) (Auto) 0.3 % (0.3-1.4) Nucleated RBC Relative Count (auto) 0.1 /100WBC Neutrophils # (Auto) 3.0 K/uL (2.0-7.4) Lymphocytes # (Auto) 0.5 K/uL (1.3-3.6) Monocytes # (Auto) 0.2 K/uL (0.3-1.0) Eosinophils # (Auto) 0.1 K/uL (0.0-0.5) Basophils # (Auto) 0.0 K/uL (0.0-0.1) Nucleated RBC Absolute Count (auto) 0.00 K/uL Glomerular Filtration Rate Calc > 60.0 Calcium Level 9.5 mg/dl (8.4-10.2) Total Bilirubin 0.5 mg/dl (0.2-1.3) Aspartate Amino Transf (AST/SGOT) 21 U/L (0-35) Alanine Aminotransferase (ALT/SGPT) 28 U/L (0-56) Alkaline Phosphatase 63 U/L (0-126) Total Protein 7.2 g/dl (6.3-8.2) Albumin 4.0 g/dl (3.5-5.0) Lipase 38 U/L (23-300) Urine Color Reena Urine Clarity Clear Urine pH 5.0 pH (4.8-9.5) Urine Specific [place] 1.009 Urine Protein Negative mg/dL (NEGATIVE) Urine Glucose (UA) Negative mg/dL (NEGATIVE) Urine Ketones Negative mg/dL (NEGATIVE) Urine Blood Negative (NEGATIVE) Urine Nitrite Positive (NEGATIVE) Urine Bilirubin Negative (NEGATIVE) Urine Urobilinogen 4.0 mg/dL (0.2-1.9) Urine Leukocyte Esterase Negative (NEGATIVE) Urine RBC <1 /HPF (0-2/HPF) Urine WBC 2 /HPF (0-5/HPF) Urine Squamous Epithelial Cells Few /LPF (NONE-FEW) Urine Bacteria Negative /HPF (NONE-FEW) Urine Mucus Few /HPF (NONE-FEW) Urinalysis Test 03/10/18 09:45 Urine Color Reena Urine Clarity Clear Urine pH 5.0 pH (4.8-9.5) Urine Specific [place] 1.009 Urine Protein Negative mg/dL (NEGATIVE) Urine Glucose (UA) Negative mg/dL (NEGATIVE) Urine Ketones Negative mg/dL (NEGATIVE) Urine Blood Negative (NEGATIVE) Urine Nitrite Positive (NEGATIVE) Urine Bilirubin Negative (NEGATIVE) Urine Urobilinogen 4.0 mg/dL (0.2-1.9) Urine Leukocyte Esterase Negative (NEGATIVE) Urine RBC <1 /HPF (0-2/HPF) Urine WBC 2 /HPF (0-5/HPF) Urine Squamous Epithelial Cells Few /LPF (NONE-FEW) Urine Bacteria Negative /HPF (NONE-FEW) Urine Mucus Few /HPF (NONE-FEW) Microbiology Microbiology Date/Time Source Procedure Growth Status 03/10/18 09:33 Blood Peripheral Draw Blood Culture - Preliminary NO GROWTH SO FAR, SET LATE. REINCUBATED Resulted 03/10/18 09:27 Blood Peripheral Draw Blood Culture - Preliminary NO GROWTH SO FAR, SET LATE. REINCUBATED Resulted ED Course/Re-evaluation Clinical Indication for ER IV: IV Access ED Course Plan at this time will be to check CBC CMP and lipase catheter urine and urine culture. We'll also obtain blood cultures. We will obtain stool culture is sent for C. difficile toxin Decision to Disposition Date: Mar 10, 2018 Decision to Disposition Time: 10:04 Depart Departure Latest Vital Signs Vital Signs Date Time Temp Pulse Resp B/P (MAP) Pulse Ox O2 Delivery O2 Flow Rate FiO2 03/10/18 10:19 126/85 (99) 03/10/18 09:38 76 16 92 Room Air 03/10/18 08:04 98.0 Impression: Primary Impression: Symptomatic urinary tract infection Condition: Improved Disposition: HOME OR SELF-CARE Referrals: JUDY VARNER MD (PCP) New Scripts Nitrofurantoin Macrocrystal (MACRODANTIN) 100 Mg Capsule 100 MG PO QID for 7 Days, #28 CAPSULE 0 Refills Prov: LAURENT MARION MD 03/10/18 Patient Instructions: Dysuria (ED) Additional Instructions: Discontinue all current antibiotics and begin taking Macrodantin 100 mg 4 times a day for the next 7 days. We'll call you tomorrow to give you an update on your urine culture that was obtained on March 08. If your symptoms worsen at any time you should return to the emergency department for reevaluation. You were also given a stool cup specimen container along with a prescription to obtain a stool sample to return to the outpatient laboratory for further testing. Results will be copied to your primary care physician. LAURENT MARION MD Mar 10, 2018 08:04
[2018-03-10] MEDS ORDERED: NS(*) 0.9% 1000 ML BAG 1,000 ML IV ONE (08:21)
[2018-03-10 09:38] LABS: PLATELET COUNT, AUTOMATED 328 K/uL (150-450)
[2018-03-10] MEDS ORDERED: NITR-106 PO (10:03)
[2018-03-10 10:19] VITALS: BP 126/85
== END 2018-03-10 10:17 | disposition home or self-care (01) ==
LOC: ER 08:14
DX: N39.0 Urinary tract infection, site not specified (principal)
CPT/HCPCS: 36415; 81001; 83690; 85025; 87040; 87088; 96360; 99283; A4353; J7030; 82040; 82247; 82310; 82374; 82435; 82565; 82947; 83630; 84075; 84132; 84155; 84295; 84450; 84460; 84520; 87045; 87324; 87449

== ENCOUNTER → 2018-03-25 | Outpatient (CLI) | payer MEDICARE ==
[~2018-03-25] MED LIST changes: +NITR-106 PO
== END ==
LOC: LAB 13:58
PROVIDERS: ATTEND Psychiatry & Neurology Neurology
DX: M33.22 Polymyositis with myopathy (principal)
CPT/HCPCS: 36415; 82495; 83018; 83885

== ENCOUNTER → 2018-10-29 | Outpatient (CLI) | payer MEDICARE | LOC: RESP 01:27 | PROVIDERS: ATTEND Internal Medicine | DX: J98.4 Other disorders of lung (principal) | CPT/HCPCS: 94060; 94726; 94729 ==